=== PATIENT | male | born 1985 ===

== ENCOUNTER 2021-08-02 20:20 | Emergency (ER) | payer OTHER ==
[~2021-08-02] VITALS: Ht 188 cm; Wt 117.9 kg
[~2021-08-02 20:20] MED LIST: DIFLUCAN 100 MG PO; LOTRISONE CREAM45 GM TP
[2021-08-02] MEDS ORDERED: BACTRIM DS TAB1 EACH PO (23:59)
[2021-08-02] MEDS ORDERED: NAPROXEN500 MG PO (23:59)
== END 2021-08-03 00:02 | disposition home or self-care (01) ==
LOC: ER 20:20
DX: S91.332A Puncture wound without foreign body, left foot, initial encounter (principal); W45.8XXA Other foreign body or object entering through skin, initial encounter; Y92.9 Unspecified place or not applicable; Y99.9 Unspecified external cause status

== ENCOUNTER 2022-03-03 12:38 | Emergency (ER) | payer OTHER ==
[~2022-03-03] VITALS: Ht 185.4 cm; Wt 117.9 kg
[~2022-03-03 12:38] MED LIST changes: +ACETAMINOPHEN650 M2; +BACTRIM DS TAB1 EACH PO; +NAPROXEN500 MG PO
[2022-03-03] MEDS ORDERED: BACTRIM DS TAB1 EACH PO (14:35)
[2022-03-03] MEDS ORDERED: CLOTRIMAZOLE-BE15 GM TOP (14:38)
== END 2022-03-03 15:18 | disposition home or self-care (01) ==
LOC: ER 12:38
DX: K61.0 Anal abscess (principal)